=== PATIENT | female | born 1940 | race Hispanic/Latino ===

== ENCOUNTER 2023-03-16 11:34 | Emergency (ER) | payer MEDICARE, OTHER ==
[~2023-03-16] VITALS: Ht 160 cm; Wt 56.7 kg
[~2023-03-16 11:34] MED LIST: AMLODIPINE BESYL5 MG PO; BP MED PO; MICARDIS40 MG PO
[2023-03-16] MEDS ORDERED: TETANUS/DIPHTHERIA TOX ADULT 0.5 ML SYR IM ONE (12:00)
[2023-03-16 15:07] VITALS: BP 147/69; PULSE 58; RESP 16; O2SAT 97
== END 2023-03-16 14:00 | disposition home or self-care (01) ==
LOC: ER 11:46
DX: S01.01XA Laceration without foreign body of scalp, initial encounter (principal); W01.198A Fall on same level from slipping, tripping and stumbling with subsequent striking against other object, initial encounter; Y92.89 Other specified places as the place of occurrence of the external cause; I10 Essential (primary) hypertension
CPT/HCPCS: 70450; 90471; 90714; 99283

== ENCOUNTER → 2024-06-23 | Outpatient (REF) | payer MEDICARE | LOC: RAD 13:23 | PROVIDERS: ATTEND Internal Medicine | DX: M25.562 Pain in left knee (principal) ==